=== PATIENT | male | born 1965 | race Caucasian/White ===

== ENCOUNTER 2021-03-27 03:37 | Emergency (ER) | payer MEDICAID, SELFPAY ==
[2021-03-27 03:38] VITALS: BP 116/85; PULSE 111; RESP 16; TEMP 36.7; O2SAT 97; BMI 23.6
[2021-03-27 04:10] LABS: Basophils # 0.1 K/mm3 (0-0.2); Basophils % 1.1 % (0.1-2.0); Eosinophils # 0.3 K/mm3 (0.0-0.4); Hematocrit 48.6 % (42.0-52.0); Hemoglobin 16.5 g/dL (14.1-18.0); Lymphocytes # 2.5 K/mm3 (0.7-4.5); Lymphocytes % 36.1 % (10-50); Mean Corpuscular HGB Conc 34.1 g/dL (31.8-35.4); Mean Corpuscular Hemoglobin 29.3 pg (27.0-31.2); Mean Corpuscular Volume 85.9 fl (80-94); Mean Platelet Volume 7.4 fl (7.4-10.4); Monocytes # 0.3 K/mm3 (0.1-1.0); Monocytes % 4.6 % (1.7-9.3); Neutrophils # 3.8 K/mm3 (1.8-7.8); Neutrophils % 54.1 % (37.0-80.0); Platelet Count 132 K/mm3 (142-424); Red Blood Count 5.65 M/mm3 (4.60-6.20); Red Cell Distribution Width 14.6 % (11.5-17.5); White Blood Count 6.9 K/mm3 (4.8-10.8)
[2021-03-27 04:17] LABS: Alanine Aminotransferase 24 U/L (12-78); Albumin Level 4.8 g/dl (3.5-5.0); Albumin/Globulin Ratio 1.5 (1.1-1.8); Alkaline Phosphatase 174 U/L (38-126); Anion Gap 17.4 mEq/L (5-15); Aspartate Amino Transferase 32 U/L (17-59); Blood Urea Nitrogen 5 mg/dl (9-20); Calcium 9.8 mg/dl (8.4-10.2); Carbon Dioxide 29 mmol/L (22.0-30.0); Chloride 90 mmol/L (98-107); Creatinine Clearance Estimated 162 mL/min (50-200); Estimated Glomerular Filt Rate 171 ml/min (>60); GFR (African American) 207 ML/MIN (>60); Globulin 3.3 g/dL (1.3-3.2); Potassium 3.4 mmoL/L (3.5-5.1); Sodium 133 mmol/L (136-145); Total Protein,Serum 8.1 g/dl (6.3-8.2)
[2021-03-27 04:22] LABS: C-Reactive Protein 6.5 mg/L (0-4)
[2021-03-27 04:25] LABS: Glucose 418 mg/dl (74-100)
[2021-03-27 04:36] LABS: Procalcitonin 0.097 ng/mL (0.0-2.0)
[2021-03-27 04:43] LABS: Erythrocyte Sedimentation Rate 16 mm/hr (0-20)
[2021-03-27 04:51] LABS: Appearance,Urine CLEAR (Clear); Bilirubin,Urine Negative (Negative); Blood, Urine 2+ (Negative); Color,Urine YELLOW (Yellow); Glucose,Urine (UA) 3+ (Negative); Ketones,Urine TRACE (Negative); Leukocyte Esterase,Urine TRACE (Negative); Microscopic, Urine URINE MICROSCOPIC (MICROSCOPIC); Nitrate,Urine POSITIVE (Negative); Protein,Urine Negative (Negative); Specific Gravity, Urine 1.015 (1.005-1.030); Urobilinogen,Urine 0.2 EU/dl (0.2)
[2021-03-27 04:51] LABS: Acetone, Serum (Rapid) None Detected (None Detect)
[2021-03-27 05:07] LABS: Bacteria,Urine 1+ /lpf; Mucus,Urine 1+ /lpf
--- NOTE | 2021-03-27 05:51 | [facility].EDSKAF ---
ED Disposition Clinical Impression: Formication, Methamphetamine abuse Diabetes mellitus Qualifiers: Diabetes mellitus type: type 1 Diabetes mellitus complication status: with other specified complication Qualified Code(s): E10.69 - Type 1 diabetes mellitus with other specified complication Disposition: Home, Self-Care Condition on Discharge: Good Instructions: DI for Substance Use Disorder Additional Instructions: call pcp for follow up Referrals: Provider,Referral, [Referring] - - Critical Care Critical Care Time: No Attestation: On 03/27/21, the high probability of a clinically significant, sudden or life threatening deterioration of the following system(s) required my full and direct attention, intervention and personal management. The time I documented below is in addition to time spent performing reported procedures but includes the following listed in this critical care notation. Medical Decision Making - Medical Records Medical records reviewed: Yes: I reviewed the patient's medical records. - [place] Inquiry Pt receiving controlled substance: No Vital Signs: 03/27/21 03:38 Temperature 98.0 F Temperature Source Oral Pulse Rate [Right] 111 H Respiratory Rate 16 Blood Pressure [Right Arm] 116/85 Blood Pressure Mean [Right Arm] 95 02 Sat by Pulse Oximetry 97 - Lab Data Lab results reviewed: Yes: I reviewed the patient's lab results. Lab Results 03/27/21 03:55: WBC 6.9, RBC 5.65, Hgb 16.5, Hct 48.6, MCV 85.9, MCH 29.3, MCHC 34.1, RDW 14.6, Plt Count 132 L, MPV 7.4, Neut % (Auto) 54.1, Lymph % (Auto) 36.1, [place] % (Auto) 4.6, Eos % (Auto) 4.0, Baso % (Auto) 1.1, Neut # (Auto) 3.8, Lymph # (Auto) 2.5, [place] # (Auto) 0.3, Eos # (Auto) 0.3, Baso # (Auto) 0.1, ESR 16 03/27/21 03:55: Sodium 133 L, Potassium 3.4 L, Chloride 90 L, Carbon Dioxide 29, Anion Gap 17.4 H, BUN 5 L, Creatinine 0.50 L, Estimated Creat Clear 162, Estimated GFR 171, Est GFR ( Amer) 207, Glucose 418 H*, Calcium 9.8, Total Bilirubin 1.0, AST 32, ALT 24, Alkaline Phosphatase 174 H, C-Reactive Protein 6.5 H, Total Protein 8.1, Albumin 4.8, Globulin 3.3 H, Albumin/Globulin Ratio 1.5, Procalcitonin 0.097 03/27/21 03:55: Acetone Level None detected 03/27/21 04:45: Urine Color Yellow, Urine Appearance Clear, Urine pH 6.0, Ur Specific [place] 1.015, Urine Protein Negative, Urine Glucose (UA) 3+, Urine Ketones Trace, Urine Blood 2+, Urine Nitrate Positive, Urine Bilirubin Negative, Urine Urobilinogen 0.2, Ur Leukocyte Esterase Trace, Urine RBC 5-10, Urine WBC 3-5, Urine Bacteria 1+, Urine Mucus 1+ 03/27/21 04:45: Urine Opiates Screen Negative, Urine Methadone Screen Negative, Ur Barbituates Screen Negative, Ur Phencyclidine Scrn Negative, Ur Amphetamines Screen [place], U Benzodiazepines Scrn Negative, Urine Cocaine Screen Negative, U Marijuana (THC) Screen Negative Result diagrams: 03/27/21 03:55 03/27/21 03:55 Medical Decision Narrative: will ask pt to see pcp for follow up and consider drug rehab - has formication Skin/Abscess/FB HPI - General Chief complaint: Skin/Abscess/Foreign Body Stated complaint: rash on arms Time Seen by Provider: 03/27/21 04:00 Mode of Arrival: Ambulatory Source of Information: Patient, Medical Record Limitations: No Limitations Description of Symptoms (Recalled from ER Triage Doc. by RN): pt states was treated for scabies in january and rash has not disipated. pt has several lesions over body. pt states he is an occasionally meth user. - History of Present Illness HPI narrative: pt with concern about rash - feels like bugs - has been treated for scabies in past - no fever and reports meth use - has diabetes MD complaint: rash Onset (ago): day(s) Tetanus up to date: unsure Location: [facility] [place] Severity: moderate Associated symptoms: denies other symptoms Treatments prior to arrival: none - Related Data Home Medications Medication Instructions Recorded Confirmed Buprenorphine HCl/Naloxone
[2021-03-27 05:58] VITALS: BP 115/78; PULSE 80; RESP 18; TEMP 36.8
== END 2021-03-27 06:10 | disposition home or self-care (01) ==
PROVIDERS: Emergency Provider Emergency Medicine; PCP Nurse Practitioner Family
DX: R20.2 Paresthesia of skin (principal); F15.10 Other stimulant abuse, uncomplicated; E10.65 Type 1 diabetes mellitus with hyperglycemia
CPT/HCPCS: 80053; 80324; 81001; 82009; 84145; 85025; 85651; 86140; 99282